=== PATIENT | female | born 2000 | race Caucasian/White ===

== ENCOUNTER 2020-01-13 10:57 | Outpatient (RCR) | payer BC, SELFPAY ==
--- NOTE | 2020-01-13 15:47 | HP.PTEVAL ---
Patient's Visit Information LAURA KAHN is a 19 year old F referred to Physical Therapy by Dr. Oscar Lara MD with a diagnosis of L knee pain and effucsion. Date of Evaluation: 01/13/20 Physical Therapist: Ramón Amaya, DPT, OCS, CSCS - Visit Plan Frequency: 2-3x /Week Duration: 4-6 Weeks Plan: 2-3x/week for 3-6 weeks for. 1. rollout and STM to L HS and gastroc. 2. Strengthen hip stabs(rotators , abd, ext) and progress to I HEP , also HS. 3. Monitor activiity modification and pattern to pain. No obvious cause or positive special test to pain, tightness in back adn weak hips most notable characteristics as well as pain with SL hop - Subjective L knee is swollen and sore. February of last year started hurting wroking overnights at work and just started hurting. Hurting on and off since.Some days better than others without pattern. Some sharp pains at night. Getting too irritating to live with. Sleep is interrupted with sharp pain 2-3x/week. 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 Studying [place], sitting can make her worse. Basic ADLs are all ok. Avoids running because of this. Has done stretching and bracing and they helped a little. MRI was [id number], swelling and torn something maybe. Ibuprofen helps a little - Pain R posterior lateral knee Pain Intensity (Out of 10): 5 Pain Intensity Range: 0, 8 - Objective Walks normal, trasnfers normal. Steps reciprocal without much change to pain. L leg SL hop very painful, R not painful. Has slight adduction/IR at femur with landing B. LB AROM WNL and without pain ROM anderson. Hip and knee and ankle aROM WFL and pain increase free. HS and gastroc mild tight at -30 90/90 test with slight posterior discomfort L. reflexes 2/3 patella and achilles B. Sensation WNL to gross light touch B LE. Strength hip rotations 4-, abd 4-, extension 4- B, no pain. Knee flexion 4 L and 4 R with slight L discomfort. Knee ext 4+ B no pain. ankle strength 5/5 without pain. No obvious swelling today in either knee. - bounce home, - ant drawer, - vlagus and varus tests, - patellar grind, - pivot shift. No real tenderness in L posterior knee vs R. - Goals Goal 1:: Sleep without waking 1 week Goal Time Frame: 4-6 Weeks Goal 2:: Pt feel 75% better with pain no greaater than 2/10. Goal Time Frame: 4-6 Weeks Goal 3:: LEFS75/80 score Goal Time Frame: 4-6 Weeks Goal 4:: I approp HEP to minimize future problems Goal Time Frame: 4-6 Weeks - Rehabilitation Potential Physical Therapy Diagnosis: knee pain unknown etiology. Rehabilitation Potential: Questionable - Anticipated Interventions Patient/Client Instruction: Educate patient on: Condition, Plan of Care For the Purpose of:: To decrease pain, To improve muscle performance and motor function, To improve ability of physical actions for home/community/work/leisure Therapeutic Exercise to Include: Strength training, Flexibilty training For the Purpose of:: To decrease pain, To improve muscle performance and motor function, To increase tolerance to activity/condition/position, To improve gait and locomotor functions Manual Therapy Techniques to Include: Soft tissue mobilization For the Purpose of:: To increase ROM Cryotherapy (ice pack, ice massage): Yes For the Purpose of:: To decrease swelling/inflammation Thank you for the opportunity to evaluate your patient. For Medicare and Medicare HMO plans, please review the plan of care and approve it. It will need to be FAXED BACK to us at [phone] for Medicare purposes. For Medicare only, by signing this I certify the plan of care. Please let me know if there are questions or concerns regarding this plan of care. Physician Signature: Date:
--- NOTE | 2020-03-10 15:15 | HP.PT.NRP ---
LAURA KAHN was seen in my office for initial evaluation on 01/13/20. The following Plan of Care was established for this patient: Initial Frequency: 2-3x /Week Initial Duration: 4-6 Weeks Patient/Client Instruction: Educate patient on: Condition, Plan of Care For the Purpose of:: To decrease pain, To improve muscle performance and motor function, To improve ability of physical actions for home/community/work/leisure Therapeutic Exercise to Include: Strength training, Flexibilty training For the Purpose of:: To decrease pain, To improve muscle performance and motor function, To increase tolerance to activity/condition/position, To improve gait and locomotor functions Manual Therapy Techniques to Include: Soft tissue mobilization For the Purpose of:: To increase ROM Cryotherapy (ice pack, ice massage): Yes For the Purpose of:: To decrease swelling/inflammation This patient was last seen in our office 01/13/20. Pertinent comments regarding their Physical therapy will appear below: Evaluation performed and POC established but pt not scheduled or attended any visits. At this point it has been nearly two months and I will discontinue due to nonattendance. At this point I will be discontinuing this patient from physical therapy. I would be happy to see this patient again in the future if found appropriate by the physician. Thank you! Ramón Amaya, DPT, OCS, CSCS
== END 2020-01-13 19:00 | disposition home or self-care (01) ==
LOC: PT 10:57
PROVIDERS: PCP Family Medicine; Referring Provider Specialist; Visit Provider Specialist
DX: M25.562 Pain in left knee (principal); M25.462 Effusion, left knee
CPT/HCPCS: 97162